=== PATIENT | female | born 1965 | race Caucasian/White ===

== ENCOUNTER 2016-11-24 18:53 | Emergency (ER) | payer MEDICARE ==
[~2016-11-24] VITALS: Ht 167.6 cm; Wt 75.0 kg
[~2016-11-24 18:53] MED LIST: AMLO5 PO; CLON.1 PO; CYMB60CA PO; GABA800T PO; IBUP800T23 PO; LEVA750T PO; LEVO.15 PO; LIPI40TA PO; OXYC-395 PO; OXYGENTANK NAS.CANULA; VENTAER INH
[2016-11-24 19:18] VITALS: BP 147/98; PULSE 113; RESP 18; TEMP 99.3; O2SAT 96
[2016-11-24] MEDS ORDERED: TOPA100T11 PO (19:27)
[2016-11-24] MEDS ORDERED: BUPR150XL PO (19:27)
[2016-11-24] MEDS ORDERED: LIDOCAINE HCL 1% PF 30 ML VIAL INFIL ONE (20:45)
[2016-11-24] MEDS ORDERED: CLIN1CAP5 PO (21:11)
--- NOTE | 2016-11-24 21:14 | PD ---
HPI Chief Complaint: Skin Problem Time Seen by Provider: 21:09 Travel History International Travel<30 days: No Contact w/Intl Traveler<30days: No Traveled to known affect area: No History of Present Illness HPI 50-year-old female presents to the emergency department for swelling to the left labia. Patient states that she's had symptoms 2 days. Patient states this is the fourth time she's had an abscess in this area. Patient is not diabetic. Patient denies fever chills nausea vomiting or other concerns. Patient reports with sitting or standing or palpation pain as 10 over 10 in intensity. Patient denies other concerns or complaints. PFSH Past Medical History Narrative Medical Pneumonia tobacco use nursing notes reviewed Diminished Hearing: No Neurologic: Yes (CRPS/RSD FULL BODY) Tetanus Vaccination: < 5 Years Influenza Vaccination: Yes ?: Not Menopausal: Yes Past Surgical History Section: Yes Social History Alcohol Use: No Tobacco Use: Yes (1 PPD) Substance Use: No Allergies-Medications (Allergen,Severity, Reaction): Coded Allergies: No Known Allergies (Unverified , 11/24/16) Reported Meds & Prescriptions Reported Meds & Active Scripts Active Reported Wellbutrin Xl 24 HR (Bupropion HCl) 150 Mg Tab 150 Mg PO DAILY Topamax (Topiramate) 100 Mg Tab 100 Mg PO QID Gabapentin 800 Mg Tab 800 Mg PO QID Review of Systems Except as stated in HPI: all other systems reviewed are Neg General / Constitutional: No: Fever, Chills HENT: No: Congestion Cardiovascular: No: Chest Pain or Discomfort Respiratory: No: Shortness of Breath Gastrointestinal: No: Abdominal Pain Genitourinary: No: Flank Pain Musculoskeletal: No: Pain Skin: Positive Lumps Neurologic: No: Weakness Psychiatric: No: Anxiety Hematologic/Lymphatic: No: Lymph Node Enlargement Physical Exam Narrative Gen.: Well-developed well-nourished female in no acute distress no respiratory distress Skin: Attention labia left side large soft tissue swelling and fluctuance with pointing mild erythema no firm induration no ulceration or vesicles or pustules Data Data Last Documented VS Vital Signs Date Time Temp Pulse Resp B/P Pulse Ox O2 Delivery O2 Flow Rate FiO2 11/24/16 19:18 99.3 113 18 147/98 96 Orders Lidocaine Pf 1% Inj (Xylocaine-Mpf 1% In (11/24/16 20:45) [facility] Medical Decision Making Medical Screen Exam Complete: Yes Emergency Medical Condition: Yes Medical Record Reviewed: Yes Differential Diagnosis Abscess, mass, cellulitis Narrative Course Patient with abscess of Bartholin's cyst requiring I&D Patient status post I&D tolerated well patient provided prescription for clindamycin and encouraged to follow-up in 2 days for packing removal Procedures Procedure Narrative After the risks and benefits were discussed the following procedure was performed: INCISION AND DRAINAGE OF ABSCESS: The area was prepped and was sterilely draped. A subcutaneous wheal of 1 % Xylocaine with a total number 2 mL was used to anesthetize the area. The area was properly anesthetized. A number 11 scalpel was used to make a 1 cm incision across the area of the abscess. Cultures were obtained. The abscess was drained an irrigated with normal saline. Quarter inch iodoform packing was placed in the wound. Sterile dressing applied. Patient advised to have packing removed in two days. Diagnosis Primary Impression: Bartholin's gland abscess Additional Impression: Encounter for incision and drainage procedure Referrals: Primary Care Physician 2 days Patient Instructions: General Instructions Additional Instructions: Packing removal at 2 days Take antibiotic as prescribed Return to the emergency department for any concerns or change in condition Take acetaminophen or ibuprofen per package instructions as needed for fever 100.4F or greater or for mild to moderate pain Med/Other Pt SpecificInfo: Prescription(s) given Scripts Clindamycin 150 Mg Bpx729 Mg PO Q6H 7 Days Ref 0 Prov:Marya George MD 11/24/16 Disposition: 01 DISCHARGE HOME Condition: Stable Marya George MD November 24, 2016 21:14
== END 2016-11-24 21:25 | disposition home or self-care (01) ==
LOC: PHEFT 18:53
DX: N75.1 Abscess of Bartholin's gland (principal); B37.89 Other sites of candidiasis; Z87.01 Personal history of pneumonia (recurrent); F17.200 Nicotine dependence, unspecified, uncomplicated; Z86.69 Personal history of other diseases of the nervous system and sense organs
CPT/HCPCS: 56420; 87070; 87205